=== PATIENT | female | born 1980 | race African-American/Black ===

== ENCOUNTER 2022-03-20 10:30 | Outpatient (RCR) | payer OTHER, SELFPAY ==
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
--- NOTE | 2022-02-28 13:17 | PCPTNOTE ---
Patient called & cancelled scheduled appointment this date did not leave a reason.
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
--- NOTE | 2022-03-06 10:23 | PCPTNOTE ---
Patient called & cancelled scheduled appointment this date, did not leave a reason.
--- NOTE | 2022-03-13 09:56 | PCPTNOTE ---
Patient did not show up for scheduled appointment this date. Called and left voicemail for patient about missed appointment. Reminded Pt of upcoming appointment on 03/15/22 @ 09:30. Left call back number if Pt is unable to make next appointment to call and cancel.
--- NOTE | 2022-03-15 09:58 | PCPTNOTE ---
Patient did not show up for scheduled appointment this date. This is Pt's second N/S. Called and left voicemail about missed appointment, informed Pt on upcoming Re-Eval on 03/20/22 @ 10:30. Informed Pt if she no-shows next appointment she will be discharged from therapy according to our N/S policy. Left call back number if Pt has any questions or concerns. Informed Physical Therapist.
--- NOTE | 2022-03-20 10:45 | PCPTNOTE ---
Patient did not show up for scheduled appointment this date.
--- NOTE | 2022-03-20 10:45 | PCPTNOTE ---
PHYSICAL THERAPY DISCHARGE Attending Provider: Ava Lassiter M.D. Patient:Keenan Hinton Date of :1980 Patient has not returned for any further treatments since 03/01/2022, therefore she will be discharged at this time. Patient?s initial visit was on 02/21/2022 and had a total of 3 visits and no showed or cancelled 5 appointments. Thank you for referring this patient to [facility]. Please review, sign, date and return this discharge summary ANITHA. I have been updated about the patient's current status and I agree with discharge from the above service at this time. Referring Physician Date
== END 2022-03-20 14:26 | disposition home or self-care (01) ==
LOC: ANHPT 10:30
PROVIDERS: PCP Internal Medicine Infectious Disease; Visit Provider Internal Medicine Infectious Disease
DX: G89.29 Other chronic pain (principal)
CPT/HCPCS: 97014; 97110; 97112; 97140; 97162; G0283

== ENCOUNTER 2023-03-21 12:13 | Outpatient (CLI) | payer OTHER, SELFPAY ==
[2023-03-21 13:05] LABS: Appearance Urine Clear (Clear); Bilirubin Urine Negative (Negative); Blood Urine Negative (Negative); Color Urine Yellow (Yellow); Glucose Urine UA Negative (Negative); Ketones Urine Negative (Negative); Leukocyte Esterase Ur Negative LEU/UL (Negative); Nitrate Urine Negative (Negative); Protein Urine Negative (Negative); Specific Grav Ur 1.015 (1.001-1.035); pH Urine 6.5 (5.0-9.0)
[2023-03-21 13:05] LABS: Hematocrit 39.1 % (37.0-47.0); Hemoglobin 12.3 g/dL (12.0-15.0); Mean Corpuscular HGB Conc 31.5 g/dl (32-36); Mean Corpuscular Hemoglobin 25.9 pg (26-34); Mean Corpuscular Volume 82.3 fl (80-100); Mean Platelet Volume 9.7 fl (7.4-10.4); Platelet Count Result 355 k/mm3 (150-375); Red Blood Count 4.75 M/mm3 (4.2-5.4); Red Cell Distribution Width 14.1 % (11.5-14.5); White Blood Count 6.8 K/mm3 (4.5-10.0)
[2023-03-21 13:10] LABS: Add Urine Microscopic? NO
[2023-03-21 13:18] LABS: Alanine Aminotransferase 20 U/L (6-35); Albumin Level 4.6 g/dL (3.5-5.1); Alkaline Phosphatase 59 U/L (38-126); Anion Gap 7 mmol/L (8-16); Aspartate Amino Transferase 24 U/L (14-36); Bilirubin,Total 0.7 mg/dL (0.2-1.3); Blood Urea Nitrogen 10 mg/dL (7-17); CRP 1.5 mg/dL (<1.0); Calcium 9.4 mg/dL (8.4-10.2); Carbon Dioxide 28 mmol/L (22-30); Chloride 102 mmol/L (98-107); Estimated Glomerular Filt Rate > 60; Glucose 83 mg/dL (65-110); Potassium 3.5 mmol/L (3.4-5.0); Sodium 137 mmol/L (137-145); Uric Acid 5.2 mg/dL (2.5-7.5)
[2023-03-21 13:53] LABS: Hepatitis B Surface Antigen Negative (Negative)
[2023-03-21 14:10] LABS: Hepatitis B Surface Antibody > 1000.00 s/c; Hepatitis C Virus Antibody Negative (Negative)
[2023-03-21 14:32] LABS: Erythrocyte Sedimentation Rate 21 mm/hr (0-20)
[2023-03-21 21:14] LABS: Hepatitis B Surface Anti Res Positive
[2023-03-25 11:32] LABS: Anti Cyclic Citrullinated Pept <16 Units (<20)
[2023-03-25 13:27] LABS: NIL 0.05 IU/mL; Quantiferon TB Plus, 1T NEGATIVE (NEGATIVE); TB1-NIL <0.00 IU/mL; TB2-NIL <0.00 IU/mL
[2023-03-28 21:21] LABS: ANCA Screen Negative (Negative); Myeloperoxidase Ab <1.0 AI (<1.0); Proteinase-3 Ab <1.0 AI (<1.0); S cerevisiae Ab (IgA) 31.8 U (<=20.0); S cerevisiae Ab (IgG) 22.5 U (<=20.0)
== END 2023-03-21 12:14 | disposition home or self-care (01) ==
LOC: ANHLAB 12:16
PROVIDERS: PCP Internal Medicine Infectious Disease; Visit Provider Internal Medicine
DX: M06.041 Rheumatoid arthritis without rheumatoid factor, right hand (principal); M06.042 Rheumatoid arthritis without rheumatoid factor, left hand; M54.9 Dorsalgia, unspecified; Z71.89 Other specified counseling; Z79.899 Other long term (current) drug therapy; M19.90 Unspecified osteoarthritis, unspecified site
CPT/HCPCS: 36415; 80053; 81003; 82306; 83520; 84550; 85027; 85652; 86036; 86140; 86200; 86480; 86671; 86706; 86803; 87340

== ENCOUNTER 2023-06-25 11:14 | Outpatient (CLI) | payer OTHER, SELFPAY ==
--- NOTE | ~2023-06-25 | XR_ITS ---
EXAMINATION: XR hand BI arthritis min 3V DATE: 06/25/2023 12:02 INDICATION: Rheumatoid arthritis without rheumatoid factor. TECHNIQUE: 4 views of right hand and 4 views of left hand on a total of 7 radiographs were obtained. COMPARISON: None. FINDINGS: RIGHT HAND: Bone alignment is normal. No fracture. Joint spaces are normal. LEFT HAND: Bone alignment is normal. No fracture. There is mild osteoarthritis of first interphalange al joint. IMPRESSION: 1. 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 Reviewed, dictated and finalized at location E.
--- NOTE | ~2023-06-25 | XR_ITS ---
EXAMINATION: XR sacroiliac joints min 3V DATE: 06/25/2023 12:02 INDICATION: Rheumatoid arthritis without rheumatoid factor. TECHNIQUE: 3 views of the sacroiliac joints were obtained. COMPARISON: None. FINDINGS: Bone alignment is normal. No fracture. The sacroiliac joints are normal. IMPRESSION: 1. Normal sacroiliac joints. Reviewed, dictated and finalized at location E.
--- NOTE | ~2023-06-25 | XR_ITS ---
EXAMINATION: XR foot LT standing 2V DATE: 06/25/2023 12:02 INDICATION: Rheumatoid arthritis without rheumatoid factor. TECHNIQUE: 2 views of left foot standing were obtained. COMPARISON: None. FINDINGS: There is mild hallux valgus. No fracture. There is mild osteoarthritis of first metatarsoph alangeal joint and talonavicular joint. IMPRESSION: 1. Mild polyarticular osteoarthritis. 2. Mild hallux valgus. Reviewed, dictated and finalized at location E.
--- NOTE | ~2023-06-25 | XR_ITS ---
EXAMINATION: XR foot RT standing 2V DATE: 06/25/2023 12:02 INDICATION: Rheumatoid arthritis without rheumatoid factor. TECHNIQUE: 2 views of right foot standing were obtained. COMPARISON: None. FINDINGS: There is mild hallux valgus. No fracture. There is mild osteoarthritis of first metatarsoph alangeal joint and talonavicular joint. IMPRESSION: 1. Mild polyarticular osteoarthritis. 2. Mild hallux valgus. Reviewed, dictated and finalized at location E.
== END 2023-06-25 11:15 | disposition home or self-care (01) ==
PROVIDERS: PCP Family Medicine; Visit Provider Internal Medicine
DX: M06.041 Rheumatoid arthritis without rheumatoid factor, right hand (principal); M06.042 Rheumatoid arthritis without rheumatoid factor, left hand; M19.041 Primary osteoarthritis, right hand; M19.042 Primary osteoarthritis, left hand; M19.071 Primary osteoarthritis, right ankle and foot; M20.11 Hallux valgus (acquired), right foot; M19.072 Primary osteoarthritis, left ankle and foot; M20.12 Hallux valgus (acquired), left foot
CPT/HCPCS: 72202; 73130; 73620